=== PATIENT | male | born 1945 | race Caucasian/White ===

== ENCOUNTER → 2021-04-06 | Outpatient (CLI) | payer OTHER ==
--- NOTE | 2021-04-06 16:30 | 2DMMODE ---
[place] [address] 2 D/M-MODE ECHOCARDIOGRAM Name: MARIANA DANIEL Room: [facility]#: [id number] Admission: 04/06/21 Attend Phys: Scott Velazco Discharge: Date of : 49 Date of Service: 04/06/21 1630 Report #: [id number] THIS REPORT FOR: cc: [facility] - Clinic physician unknown [facility] - Clinic physician unknown Kevin Deshpande MD [facility] ~ APPROVED REPORT Study performed: 04/06/2021 13:56:30 EXAM: Comprehensive 2D, Doppler, and color-flow Echocardiogram Patient Location: Out-Patient BSA: 1.85 HR: 73 bpm BP: 126/80 mmHg Other Information Study Quality: Good Indications CAD 2D Dimensions IVSd: 9.67 (7-11mm) LVOT Diam: 20.26 (18-24mm) LVDd: 38.34 mm PWd: 7.78 (7-11mm) Ascending Ao: 30.33 (22-36mm) LVDs: 24.14 (25-40mm) Aortic Root: 32.19 mm Volumes Left Atrial Volume (Systole) LA ESV Index: 24.10 mL/m2 Aortic Valve AoV Peak Jimy.: 0.89 m/s AO Peak Gr.: 3.18 mmHg LVOT Max P.34 mmHg AO Mean Gr.: 1.72 mmHg LVOT Mean P.37 mmHg LVOT Max V: 0.91 m/s AO V2 VTI: 16.56 cm LVOT Mean V: 0.52 m/s LACEY (VTI): 3.80 cm2 LVOT V1 VTI: 19.49 cm Mitral Valve E/A Ratio: 1.81 [place] [address] 2 D/M-MODE ECHOCARDIOGRAM Name: MARIANA DANIEL Room: [facility]#: [id number] Admission: 04/06/21 Attend Phys: Scott Velazco Discharge: Date of : 49 Date of Service: 04/06/21 1630 Report #: [id number] MV Decel. Time: 149.18 ms MV E Max Jimy.: 0.97 m/s MV PHT: 43.26 ms MVA (PHT): 5.09 cm2 TDI E/Lateral E': 8.08 E/Medial E': 8.82 Medial E' Jimy.: 0.11 m/s Lateral E' Jimy.: 0.12 m/s Pulmonary Valve PV Peak Jimy.: 0.58 m/s PV Peak Gr.: 1.33 mmHg Tricuspid Valve RAP Estimate: 5.00 mmHg TR Peak Gr.: 21.57 mmHg RVSP: 26.57 mmHg PA Pressure: 26.57 mmHg Left Ventricle The left ventricle is normal size. There is normal LV segmental wall motion. There is normal left ventricular wall thickness. Left ventricular systolic function is borderline. LVEF is 50-55%. The left ventricular diastolic function is normal. Right Ventricle The right ventricle is normal size. The right ventricular systolic function is normal. Atria The left atrium size is normal. The right atrium size is normal. Aortic Valve The aortic valve is normal in structure. No aortic regurgitation is present. There is no aortic valvular stenosis. Mitral Valve The mitral valve is normal in structure. Mild mitral regurgitation. No evidence of mitral valve stenosis. Tricuspid Valve The tricuspid valve is normal in structure. Mild tricuspid regurgitation. Pulmonic Valve The pulmonary valve is normal in structure. There is [place] [address] 2 D/M-MODE ECHOCARDIOGRAM Name: MARIANA DANIEL Room: [facility]#: [id number] Admission: 04/06/21 Attend Phys: Scott Velazco Discharge: Date of : 49 Date of Service: 04/06/21 1630 Report #: [id number] valvular regurgitation. Great Vessels The aortic root is normal in size. IVC is normal in size and collapses >50% with inspiration. Pericardium There is no pericardial effusion. <Conclusion> LVEF is 50-55%. Mild mitral regurgitation. <ELECTRONICALLY SIGNED> By: Kevin Deshpande MD, [facility] 04/06/21 1630 163 29 Kevin Deshpande MD, [facility] /INF
== END ==
LOC: M.CRD 03-18 13:00
PROVIDERS: ATTEND Chiropractor
DX: I08.1 Rheumatic disorders of both mitral and tricuspid valves (principal); I25.2 Old myocardial infarction; I25.10 Atherosclerotic heart disease of native coronary artery without angina pectoris

== ENCOUNTER 2021-08-19 05:27 | Inpatient (IN) | payer OTHER ==
[~2021-08-19] VITALS: Ht 180.3 cm; Wt 76.7 kg
[2021-08-19] VITALS (33 sets, daily range): BP systolic 64–109; BP diastolic 33–89
--- NOTE | ~2021-08-19 | PROC ---
[address] [address] PROCEDURE REPORT Name: MARIANA DANIEL Room: [address] IN ..#: [id number] Admission: 08/19/21 Attend Phys: Bi Mayberry Discharge: Date of : 49 Report #: [id number] THIS REPORT FOR: cc: [facility] - Clinic physician unknown [facility] - Clinic physician unknown [facility],Medical Records Staff ~ For GI report, please see the Provation report in Perceptive 7 content. By: 0651Medical Records Staff RY /ASHLIE
[2021-08-19 05:55] LABS: HEMATOCRIT 46.9 % (42.0-52.0); HEMOGLOBIN 15.7 gm/dL (14.0-18.0); MCHC 33.5 g/dL (28.0-37.0); MCV 95.7 fL (80.0-100.0); MPV 9.8 fl. (7.2-11.1); NUCLEATED RBCS 0 /100WBC; PLATELET COUNT* 136 thou/uL (150-400); RDW-CV 13.8 % (10.5-14.5); WBC 12.1 thou/uL (4.0-11.0)
[2021-08-19] MEDS ORDERED: PRADAXA150 MG PO (06:11)
[2021-08-19] MEDS ORDERED: ATORVASTATIN CA80 MG PO (06:12)
[2021-08-19] MEDS ORDERED: LOPRESSOR50 MG PO (06:12)
[2021-08-19] MEDS ORDERED: DESYREL150 MG PO (06:13)
[2021-08-19] MEDS ORDERED: FAMOTIDINE10 MG PO (06:13)
[2021-08-19] MEDS ORDERED: VENLAFAXINE HC100 MG PO (06:14)
[2021-08-19] MEDS ORDERED: CHILDREN'S ZYRT10 M1 PO (06:14)
[2021-08-19] MEDS ORDERED: LEVETIRACETAM500 M1 PO (06:15)
[2021-08-19 06:16] LABS: INR 1.5
[2021-08-19 06:27] LABS: CALCIUM 9.1 mg/dL (8.5-10.1); CREATININE 1.2 mg/dL (0.6-1.3); POTASSIUM 3.9 mmol/L (3.5-5.1)
[2021-08-19 06:38] LABS: ALBUMIN 3.1 g/dL (3.4-5.0); MAGNESIUM 1.9 mg/dL (1.8-2.4); TOTAL BILIRUBIN 0.8 mg/dL (<0.1-1.0); TOTAL PROTEIN 6.7 g/dL (6.4-8.2)
[2021-08-19 07:33] LABS: ABSOLUTE EOSINOPHILS 0.4 thou/uL (0.0-0.7); ABSOLUTE LYMPHOCYTES 0.8 thou/uL (0.8-5.3); ABSOLUTE NEUTROPHILS 9.9 thou/uL (1.6-8.1); PLATELET ESTIMATE ADEQUATE
--- NOTE | 2021-08-19 13:48 | 2DMMODE ---
[place] [address] 2 D/M-MODE ECHOCARDIOGRAM Name: MARIANA DANIEL Room: [address] IN .R.#: [id number] Admission: 08/19/21 Attend Phys: Anibal Guerrero Discharge: Date of : 49 Date of Service: 08/19/21 1347 Report #: [id number] THIS REPORT FOR: cc: [facility] - Clinic physician unknown [facility] - Clinic physician unknown Omar Rodriguez MD [facility] ~ APPROVED REPORT Study performed: 08/19/2021 11:40:23 EXAM: Comprehensive 2D, Doppler, and color-flow Echocardiogram Patient Location: In-Patient Room #: 109 Status: routine BSA: 1.96 HR: 93 bpm BP: 126/80 mmHg Rhythm: NSR Other Information Study Quality: Good Indications Dyspnea 2D Dimensions IVSd: 9.71 (7-11mm) LVOT Diam: 20.91 (18-24mm) LVDd: 42.23 mm PWd: 8.81 (7-11mm) Ascending Ao: 33.19 (22-36mm) LVDs: 27.94 (25-40mm) Aortic Root: 32.34 mm Volumes Left Atrial Volume (Systole) LA ESV Index: 27.60 mL/m2 Aortic Valve AoV Peak Jimy.: 0.87 m/s AO Peak Gr.: 3.05 mmHg LVOT Max P.72 mmHg AO Mean Gr.: 1.81 mmHg LVOT Mean P.33 mmHg LVOT Max V: 0.83 m/s AO V2 VTI: 16.22 cm LVOT Mean V: 0.53 m/s LACEY (VTI): 3.17 cm2 LVOT V1 VTI: 14.97 [place] [address] 2 D/M-MODE ECHOCARDIOGRAM Name: MARIANA DANIEL Room: [address] IN [facility]#: [id number] Admission: 08/19/21 Attend Phys: Anibal Guerrero Discharge: Date of : 49 Date of Service: 08/19/21 1347 Report #: [id number] Mitral Valve MV Decel. Time: 171.69 ms MV PHT: 49.79 ms MVA (PHT): 4.42 cm2 TDI Medial E' Jimy.: 0.07 m/s Lateral E' Jimy.: 0.11 m/s Pulmonary Valve PV Peak Jimy.: 0.45 m/s PV Peak Gr.: 0.82 mmHg Tricuspid Valve RAP Estimate: 10.00 mmHg TR Peak Gr.: 21.50 mmHg RVSP: 31.00 mmHg PA Pressure: 31.00 mmHg Left Ventricle The left ventricle is normal size. There is normal LV segmental wall motion. There is normal left ventricular wall thickness. Left ventricular systolic function is borderline. LVEF is 50-55%. Right Ventricle The right ventricle is normal size. The right ventricular systolic function is normal. Atria Left atrium is mildly dilated. The right atrium size is normal. Aortic Valve Mild aortic valve sclerosis. No aortic regurgitation is present. There is no aortic valvular stenosis. Mitral Valve The mitral valve is normal in structure. Mild mitral regurgitation. No evidence of mitral valve stenosis. Tricuspid Valve The tricuspid valve is normal in structure. Mild tricuspid regurgitation. Mild pulmonary hypertension. Pulmonic Valve The pulmonary valve is normal in structure. Trace [place] [address] 2 D/M-MODE ECHOCARDIOGRAM Name: MARIANA DANIEL Room: [address] IN [facility]#: [id number] Admission: 08/19/21 Attend Phys: Anibal Guerrero Discharge: Date of : 49 Date of Service: 08/19/21 1347 Report #: [id number] Great Vessels The aortic root is normal in size. IVC is normal in size and collapses >50% with inspiration. Pericardium There is no pericardial effusion. <Conclusion> The left ventricle is normal size. There is normal left ventricular wall thickness. Left ventricular systolic function is borderline. LVEF is 50-55%. The right ventricle is normal size. Left atrium is mildly dilated. The right atrium size is normal. Mild aortic valve sclerosis. No aortic regurgitation is present. There is no aortic valvular stenosis. The mitral valve is normal in structure. Mild mitral regurgitation. The tricuspid valve is normal in structure. Mild tricuspid regurgitation. Mild pulmonary hypertension. IVC is normal in size and collapses >50% with inspiration. There is no pericardial effusion. There is normal LV segmental wall motion. <ELECTRONICALLY SIGNED> By: Omar Rodriguez MD, FACC 08/19/21 1347 46 134 Omar Rodriguez MD, FACC /INF
--- NOTE | 2021-08-19 14:21 | EKG ---
[place] [address] ELECTROCARDIOGRAM REPORT Name: MARIANA DANIEL Room: [address] ADM IN .R.#: [id number] Admission: 08/19/21 Attend Phys: Anibal Guerrero Discharge: Date of : 49 Date of Service: 08/19/21 0531 Report #: [id number] THIS REPORT FOR: //name// [facility] ED Test Date: 2021-08-19 Test Time: 05:31:43 Pat Name: MARIANA DANIEL Department: Room: [facility] Gender: M Speech/Language Therapist: : 1945 Requested By: Adamaris Loya Order Number: [id number] MD: Omar Rodriguez Measurements Intervals [place] Rate: 136 P: [place]: QRS: 109 QRSD: 92 T: -35 QT: 293 QTc: 441 Interpretive Statements Atrial fibrillation Right axis deviation Consider left ventricular hypertrophy Nonspecific T abnormalities, inferior leads No previous ECG available for comparison Electronically Signed On 08-19-2021 14:20:58 MOTOR SETTER by Omar Rodriguez [email or web address] <ELECTRONICALLY SIGNED> By: Omar Rodriguez MD, [facility] 08/19/21 1420 0531 0531 Omar Rodriguez MD, [facility] /EPI
[2021-08-20 04:40] LABS: HEMATOCRIT 37.2 % (42.0-52.0); MCH 32.9 pg (26.0-34.0); MCV 96.7 fL (80.0-100.0); MPV 9.8 fl. (7.2-11.1); RBC 3.84 mil/uL (4.50-6.00); RDW-CV 13.8 % (10.5-14.5); WBC 7.3 thou/uL (4.0-11.0)
[2021-08-20 05:04] LABS: HEMOGLOBIN 12.6 gm/dL (14.0-18.0)
[2021-08-20 05:53] VITALS: BP 106/42
[2021-08-20 09:17] VITALS: BP 124/53
[2021-08-20 12:00] VITALS: BP 106/48
[2021-08-20 20:00] VITALS: BP 136/91
[2021-08-21] VITALS (9 sets, daily range): BP systolic 112–163; BP diastolic 67–95
[2021-08-21 08:31] LABS: ABSOLUTE EOSINOPHILS 0.2 thou/uL (0.0-0.7); ABSOLUTE LYMPHOCYTES 0.7 thou/uL (0.8-5.3); ABSOLUTE MONOCYTES 0.8 thou/uL (0.0-1.2); ABSOLUTE NEUTROPHILS 4.5 thou/uL (1.6-8.1); BASOPHILS 0.5 %; HEMOGLOBIN 14.5 gm/dL (14.0-18.0); LYMPHOCYTES 11.7 %; MCH 32.4 pg (26.0-34.0); MCHC 33.7 g/dL (28.0-37.0); MCV 96.3 fL (80.0-100.0); MONOCYTES 12.8 %; MPV 9.7 fl. (7.2-11.1); NUCLEATED RBCS 0 /100WBC; PLATELET COUNT* 110 thou/uL (150-400); RBC 4.46 mil/uL (4.50-6.00); RDW-CV 13.7 % (10.5-14.5); WBC 6.3 thou/uL (4.0-11.0)
[2021-08-21 09:02] LABS: ALBUMIN 2.8 g/dL (3.4-5.0); CALCIUM 8.9 mg/dL (8.5-10.1); CREATININE 1.1 mg/dL (0.6-1.3); POTASSIUM 3.7 mmol/L (3.5-5.1); TOTAL BILIRUBIN 1.2 mg/dL (<0.1-1.0); TOTAL PROTEIN 6.4 g/dL (6.4-8.2)
[2021-08-21] MEDS ORDERED: PROTONIX40 M2 PO (10:24)
[2021-08-21] MEDS ORDERED: DOXYCYCLINE 10100 MG PO (10:25)
--- NOTE | 2021-08-22 15:08 | EKG ---
[place] [address] ELECTROCARDIOGRAM REPORT Name: MARIANA DANIEL Room: [address] IN M.R.#: [id number] Admission: 08/19/21 Attend Phys: Anibal Guerrero Discharge: 08/21/21 Date of : 49 Date of Service: 08/20/21 1329 Report #: [id number] THIS REPORT FOR: //name// [facility] Test Date: 2021-08-20 Test Time: 13:29:11 Pat Name: MARIANA DANIEL Department: Room: [address] Gender: M Graduate Research Assistant: JAIMIE : 1945 Requested By: Kassi Irwin Order Number: [id number] MD: Severo Gutiérrez Measurements Intervals [place] Rate: 129 P: [place]: QRS: 102 QRSD: 101 T: -20 QT: 362 QTc: 531 Interpretive Statements Atrial fibrillation Right axis deviation Borderline low voltage, extremity leads Prolonged QT interval Baseline wander in lead(s) V3 Compared to ECG 08/19/2021 05:31:43 Prolonged QT interval now present Electronically Signed On 08-22-2021 15:08:07 PULLING MACHINE OPERATOR by Severo Gutiérrez [email or web address] <ELECTRONICALLY SIGNED> By: Severo Gutiérrez MD, FACC 08/22/21 1508 1329 1329 Severo Gutiérrez MD, FACC /EPI
--- NOTE | 2021-08-22 15:15 | EKG ---
[place] [address] ELECTROCARDIOGRAM REPORT Name: MARIANA DANIEL Room: [address] IN M.R.#: [id number] Admission: 08/19/21 Attend Phys: Anibal Guerrero Discharge: 08/21/21 Date of : 49 Date of Service: 08/21/21 0938 Report #: [id number] THIS REPORT FOR: //name// [facility] Test Date: 2021-08-21 Test Time: 09:38:55 Pat Name: MARIANA DANIEL Department: Room: [address] Gender: M Car Conditioner: JAIMIE : 1945 Requested By: Kassi Irwin Order Number: [id number] Reading MD: Severo Gutiérrez Measurements Intervals [place] Rate: 144 P: [place]: QRS: 107 QRSD: 91 T: -15 QT: 339 QTc: 525 Interpretive Statements Atrial fibrillation Right axis deviation Borderline repolarization abnormality Prolonged QT interval Compared to ECG 08/20/2021 13:29:11 ST (T wave) deviation no longer present Electronically Signed On 08-22-2021 15:15:05 [employer] [employer] MOTOR MECHANIC by Severo Gutiérrez [email or web address] <ELECTRONICALLY SIGNED> By: Severo Gutiérrez MD, FACC 08/22/21 1515 7 Severo Gutiérrez MD, FACC /EPI
== END 2021-08-21 19:30 | disposition home or self-care (01) | DRG 368 ==
LOC: M.ERS 05:27 → M.ICU 06:49 → M.TBA-ER 06:49 → M.ICU 08:52 → M.2W 22:52
PROVIDERS: Emergency Medicine; Internal Medicine; Internal Medicine Gastroenterology; ADMIT Internal Medicine; ATTEND Internal Medicine
PROC: 0DJ08ZZ Inspection of Upper Intestinal Tract, Via Natural or Artificial Opening Endoscopic (ICD-10-PCS; principal; 2021-08-19)
DX: K20.91 Esophagitis, unspecified with bleeding (principal); K25.4 Chronic or unspecified gastric ulcer with hemorrhage; J18.9 Pneumonia, unspecified organism; K29.71 Gastritis, unspecified, with bleeding; I69.354 Hemiplegia and hemiparesis following cerebral infarction affecting left non-dominant side; Z20.822 Contact with and (suspected) exposure to COVID-19; I48.91 Unspecified atrial fibrillation; G40.909 Epilepsy, unspecified, not intractable, without status epilepticus; I10 Essential (primary) hypertension; I25.10 Atherosclerotic heart disease of native coronary artery without angina pectoris; E78.5 Hyperlipidemia, unspecified; I95.9 Hypotension, unspecified; K44.9 Diaphragmatic hernia without obstruction or gangrene; Z88.0 Allergy status to penicillin; I25.2 Old myocardial infarction; Z95.5 Presence of coronary angioplasty implant and graft; Z95.1 Presence of aortocoronary bypass graft; Z87.891 Personal history of nicotine dependence